=== PATIENT | male | born 1965 | race Caucasian/White ===

== ENCOUNTER 2025-04-02 12:01 | Emergency (ER) | payer OTHER, SELFPAY ==
[2025-04-02 12:15] VITALS: BP 118/83
[2025-04-02 12:37] LABS: Hematocrit 43.4 % (39.0-52.0); Hemoglobin 15.5 g/dL (13.0-18.0); Mean Corp Hgb Conc. 35.7 g/dL (33.0-37.0); Mean Corpuscular Volume 84.9 fL (80.0-94.0); Nucleated Red Blood Cells % 0 % (-); Platelet Count 180 10^3/uL (130-400); Red Cell Dist. Width 12.0 % (11.5-14.5)
[2025-04-02 12:52] LABS: ALT (SGPT) 24 U/L (0-50); AST (SGOT) 22 U/L (17-59); Albumin 4.5 g/dl (3.5-5.0); Alkaline Phosphatase 83 U/L (38-126); Blood Urea Nitrogen 13 mg/dl (9-20); Calcium 9.5 mg/dl (8.4-10.2); Carbon Dioxide 21 mmol/L (22-30); Chloride 106 mmol/L (98-107); Glucose 107 mg/dl (70-99); Lipase 63 U/L (23-300); Potassium 4.5 mmol/L (3.5-5.1); Sodium 135 mmol/L (135-145); Total Protein 7.4 g/dl (6.3-8.2); eGFR > 60.00
[2025-04-02] MEDS: NSS 1000 IV (13:11)
[2025-04-02] MEDS: ZOFRAN 4 MG IV (13:11)
[2025-04-02] MEDS: DILAUDID 0.5 MG IV (13:11)
--- NOTE | 2025-04-02 13:22 | ED.GENMED ---
History of Present Illness
General
Chief Complaint: Abdominal Pain
Source: patient
Time Seen by Provider: 04/02/25 12:35
History of Present Illness
History of Present Illness:
59-year-old male with past medical history of atrial fibrillation and diverticulitis presents to the ER for evaluation of left lower quadrant abdominal pain that began around 1 week ago, initially mild, today much more intense accompanied with
nausea and diminished p.o. intake. He does note that last night he had a couple of beers with his brother and is unsure if this was a potential trigger as he does not drink very often. He denies any fevers, chills or rigors, bowel changes or
urinary symptoms. He did not take anything for his symptoms prior to arrival. Location is similar to where he previously had pain when he was diagnosed with diverticulitis in the past.
Past History
Past History
ED Past Medical History: Arrthythmia and Other (Diverticulitis)
ED Past Surgical History: Orthopedic and Other
Social History
Tobacco: Non-smoker
Alcohol: Occasional
Drug: None
Personal: Single
Living: with family
Review of Systems
Review of Systems
All Other Systems: ROS reviewed and negative except as documented in HPI and ROS
Phy Exam
Physical Exam
Physical Exam:
GENERAL: Alert , appears uncomfortable
EYE: clear conjunctiva b/l
HEAD: NCAT
ENT: o/p clr, mmm.
CARDIAC: Regular rate and rhythm .
LUNGS: Clear breath sounds bilaterally, no acute respiratory distress, no wheezes/rales/rhonchi
ABDOMEN: Soft, moderate tenderness within the left lower quadrant no with guarding, cvat
NEUROLOGICAL: Alert and oriented
SKIN: Warm and dry, skin intact.
MUSCULOSKELETAL: No edema, well perfused.
PSYCH: Normal and appropriate interaction.
Scores
Heart Failure Risk
Heart Failure Risk Score: Not Applicable
Heart Score for Chest Pain Patients
STEMI patient?: Not applicable
Withdrawal Assessment of Alcohol
Withdrawal Assessment Completed?: Not applicable
Course
Orders/Labs/Results
Orders:
Orders
04/02/25 12:23
Complete Blood Count/With Diff Urgent
Comprehensive Metabolic Panel Urgent
Lipase Urgent
04/02/25 12:37
CT Abd/pelvis W Iv Cont Urgent
Comment:
Reason For Exam: abdominal pain, vomiting
04/02/25 12:56
0.9% Sodium Chloride 1000 ml [Nss] 1,000 ml IV BOLUS
HYDROmorphone [Dilaudid] 0.5 mg IV NOW STA
04/02/25 13:07
Ondansetron Injectable [Zofran] 4 mg .ROUTE .STK-MED ONE
04/02/25 13:11
Ondansetron Injectable [Zofran] 4 mg IV NOW STA
04/02/25 13:47
Urinalysis Reflex To Culture Urgent
Date Specimen was Collected: 04/02/25
Time Specimen was Collected: 13:04
04/02/25 15:35
Oxycodone/Acetaminophen [Percocet 5/325] 1 tablet PO NOW STA
Abnormal Lab Results
04/02/25
12:23
Abs Immat Gran (auto) 0.1 H 10^3/uL
(0-0.05)
Absolute Neuts (auto) 7.7 H 10^3/uL
(1.4-6.5)
Absolute Monos (auto) 0.7 H 10^3/uL
(0.1-0.6)
Immature Gran % 0.6 H %
(0-0.5)
Lymphocytes % 18.1 L %
(20.5-51.1)
Carbon Dioxide 21 L mmol/L
(22-30)
Glucose 107 H mg/dl
(70-99)
04/02/25 12:23
1219/25 12:23
Vital Signs
Initial and Last Documented VS:
Initial Vital Signs
Temp Pulse Resp Pulse Ox
97.9 F 61 19 95
04/02/25 12:12 04/02/25 12:12 04/02/25 12:12 04/02/25 12:12
Last Documented Vital Signs
Temp Pulse Resp BP Pulse Ox
97.9 F 102 16 142/75 100
04/02/25 12:12 04/02/25 15:48 04/02/25 15:48 04/02/25 15:48 04/02/25 15:48
MDM/Problems Addressed
Differential Diagnosis Includes:
Diverticulitis
Renal/ureteral colic
Colitis
UTI
Pancreatitis
MDM/Problems Addressed:
59-year-old male presenting to the ER for evaluation of left lower quadrant abdominal pain for about 1 week, today worse. Appears quite uncomfortable and on exam has considerable left lower quadrant tenderness. Will check labs, CT imaging. Pain
control with Dilaudid, and Zofran for nausea. Disposition pending
*Radiology
Radiology exam reviewed: radiology read reviewed
*Pulse Oximetry
SaO2: 95
Oxygen Mode of Delivery: Room air
Patient hypoxic: no
*Critical Care Note
Total Time (30-74mins, 75-104mins- exclusive of procedures): Not Applicable
Patient Management
Escalation/DeEscalation of care consider admission/obs:
CT shows moderate to advanced diverticulitis but without evidence for abscess or perforation. Patient ultimately would like to be discharged home. Discussed return precautions including worsening pain, fevers, vomiting or any other concerns he may
have. Prescription for Augmentin sent to pharmacy. Patient stable for discharge
ED Attending Note
-
Portions of this chart may have been created with voice recognition software.� Occasional wrong word or��sound alike� substitutions may have occurred due to the inherent limitations of voice recognition software.
Discharge Plan
Departure
Patient Disposition: Home (Routine Discharge)
Date of Disposition: 04/02/25
Time of Disposition: 15:32
Patient with high blood pressure during this ER visit?: No
Discharge Problem:
Diverticulitis
Instructions: Diverticulitis (DC)
Prescriptions:
New
amoxicillin-pot clavulanate 875-125 mg tablet
1 tab PO BID 10 Days Qty: 20 0RF
oxycodone-acetaminophen [Percocet] 5-325 mg tablet
1 tab PO Q6HPRN PRN (Reason: pain) Qty: 10 0RF
No Action
tramadol 200 MG tablet
1 tab PO DAILY
meloxicam 7.5 MG tablet
7.5 mg PO DAILY
prednisone 10 MG tablet
10 mg PO .TAPER Qty: 30 0RF
Rx Instructions:
Take 40mg daily x3days, 30mg daily x3days,
20mg daily x3days, 10mg daily x3days.
hydrocodone-acetaminophen 1 TABLET tablet
1 tab PO Q4HPRN PRN (Reason: pain) Qty: 12 0RF
Referrals:
Adelita Germain DO [Family Provider, Family Practice]
Interventions
Interventions:
*General Assessment Last Done: 04/02/25 12:14
*Neglect/Abuse Screening Last Done: 04/02/25 12:14
*ED COVID-19 Vaccine History Last Done: 04/02/25 12:14
*ED Influenza Vaccine History Last Done: 04/02/25 12:14
[facility] Risk Assessment Tool Last Done: 04/02/25 15:48
*Risk Screen - Suicide (C-SSRS) Last Done: 04/02/25 12:14
HA-Qfzwwi-Ckqvjufdsz Assessment Last Done: 04/02/25 13:00
Discharge Date and Time
Print Language: SLOVENIAN
[2025-04-02 14:00] LABS: Urine Character Clear (Clear)
[2025-04-02] MEDS: PERCOCET 5/325 1 TABLET PO (15:41)
[2025-04-02 15:48] VITALS: BP 142/75
== END 2025-04-02 16:23 | disposition home or self-care (01) ==
LOC: EMR 12:01
PROVIDERS: Physician Assistant Medical; EMERGENCY PHYSICIAN Emergency Medicine; FAMILY PHYSICIAN Family Medicine
DX: K57.32 Diverticulitis of large intestine without perforation or abscess without bleeding (principal); I48.91 Unspecified atrial fibrillation
CPT/HCPCS: 99284; 96374; 96375; 96361; 74177; 80053; 81003; 83690; 85025; Q9967